=== PATIENT | male | born 2000 | race Two or more races ===

== ENCOUNTER 2019-05-28 14:39 | Emergency (ER) | payer SELFPAY ==
[~2019-05-28] VITALS: Ht 162.6 cm; Wt 65.8 kg
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
[2019-05-28] MEDS ORDERED: LORAZEPAM INJ 2 MG/ML VIAL IVP ONE (15:00)
[2019-05-28] MEDS ORDERED: IV NS 0.9% 1,000 ML BAG IV ONE (15:00)
[2019-05-28] MEDS ORDERED: LORAZEPAM INJ 2 MG/ML VIAL ONE (15:08)
[2019-05-28 15:20] LABS: BASOPHILS # (AUTO) 0.1 /CMM (0.0-0.2); BASOPHILS % (AUTO) 0.7 % (0.0-2.0); EOSINOPHILS % (AUTO) 0.1 % (0.0-6.0); HEMATOCRIT 47 % (39-51); HEMOGLOBIN 15.9 g/dL (13.5-17.5); LYMPHOCYTES # (AUTO) 1.8 /CMM (0.8-4.8); LYMPHOCYTES % (AUTO) 16.4 % (20.0-44.0); MEAN CORPUSCULAR HGB CONC 34 g/dl (31.0-36.0); MEAN CORPUSCULAR VOLUME 88 fL (80-96); MONOCYTES % (AUTO) 9.4 % (2.0-12.0); NEUTROPHILS % (AUTO) 73.4 % (43.0-81.0); PLATELET COUNT (AUTO) 432 /CMM (150-450); RED BLOOD CELL COUNT(AUTO) 5.33 MIL/uL (4.5-6.0); WHITE BLOOD COUNT (AUTO) 10.8 K/uL (4.3-11.0)
[2019-05-28 15:30] LABS: CALCIUM, SERUM 10.6 mg/dL (8.5-10.1); CARBON DIOXIDE 23 mmol/L (21-32); CHLORIDE 108 mmol/L (98-107); CREATININE 1.6 mg/dL (0.6-1.3); GLUCOSE 198 mg/dL (74-106); POTASSIUM 3.8 mmol/L (3.5-5.1); SODIUM SERUM 149 mmol/L (136-145); UREA NITROGEN, BLOOD 27 mg/dL (7-18)
[2019-05-28 15:36] LABS: ALANINE AMINOTRANSFERASE 83 U/L (12-78); ALBUMIN 4.4 g/dL (3.4-5.0); ALCOHOL, BLOOD < 3 mg/dL (0-0); ALKALINE PHOSPHATASE 157 U/L (46-116); ASPARTATE AMINOTRANSFERASE 41 U/L (15-37); BILIRUBIN,DIRECT 0.1 mg/dL (0.0-0.2); BILIRUBIN,TOTAL 0.6 mg/dL (0.2-1.0); TOTAL PROTEIN, SERUM 9.1 g/dL (6.4-8.2)
[2019-05-28 15:37] LABS: ACETAMINOPHEN < 2 ug/ml (10-30); SALICYLATE < 2.8 mg/dL (2.8-20.0)
--- NOTE | 2019-05-28 15:56 | NUR ---
CONTRACT MODELER AT BEDSIDE
--- NOTE | 2019-05-28 17:24 | NUR ---
PATIENT AWAKE, WITH BLANK STARE. HOOKED TO MONITOR, KEPT SAFE AND COMFORTABLE. WILL CONTINUE TO MONITOR ACCORDINGLY
--- NOTE | 2019-05-28 19:00 | NUR ---
PATIENT AWAKE, ASKED FOR WATER, PROVIDED FLUIDS, ABLE TO TOLERATE WELL.
--- NOTE | 2019-05-28 19:10 | NUR ---
Pt stated his name "Rios Cabrera"
--- NOTE | 2019-05-28 19:13 | NUR ---
REPORT RECIEVED FROM FABIÁN GARCIA FOR ELÍAS
--- NOTE | 2019-05-28 19:14 | NUR ---
REPORT GIVEN TO ANTONIO GARCIA FOR ELÍAS
--- NOTE | 2019-05-28 19:21 | NUR ---
Spoke to regarding pt. PT is awaiting discharge.
--- NOTE | 2019-05-28 19:26 | NUR ---
Pt is ambulatory. Pt tolerated walking through the unit.
--- NOTE | 2019-05-28 19:30 | NUR ---
PT CLARIFIED HIS NAME. PT STATED THAT HIS NAME IS ABDELRAHMAN CHARLES. ADMITTING WAS NOTIFIED. PRIMARY NURSE NOTIFIED.
--- NOTE | 2019-05-28 19:50 | NUR ---
Patient discharged to home in stable condition. Written and verbal after care instructions given. Patient verbalizes understanding of instruction. IV removed. Catheter intact and site benign. Pressure and 4x4 applied to site. No bleeding noted. pt ambulatory with a steady gait.
[2019-05-28 19:52] VITALS: BP 136/94
== END 2019-05-28 19:52 | disposition home or self-care (01) ==
LOC: EDBD 14:42 → ER 14:42
DX: F15.90 Other stimulant use, unspecified, uncomplicated (principal); R61 Generalized hyperhidrosis; R00.0 Tachycardia, unspecified
CPT/HCPCS: 36415; 80048; 80076; 80307; 80329; 85025; 93005; 96374; 99284; G0480; J2060; J7030